=== PATIENT | male | born 1955 | race Caucasian/White ===

== ENCOUNTER 2019-02-19 20:28 | Emergency (ER) | payer BC ==
[~2019-02-19] VITALS: Ht 175.3 cm; Wt 75.5 kg
[~2019-02-19 20:28] MED LIST: BAYER CHEWABLE81 MG PO; CIPRO500 MG PO; FLAGYL500 MG PO; FLOMAX0.4 MG PO; LIPITOR20 MG PO; PRINIVIL10 MG PO; ZOFRAN4 MG PO
[2019-02-19] MEDS ORDERED: TOPROL XL25 MG PO (20:45)
[2019-02-19] MEDS ORDERED: ULTRAM50 MG PO (21:57)
== END 2019-02-19 22:55 | disposition home or self-care (01) ==
LOC: D.ER 20:28
DX: S61.213A Laceration without foreign body of left middle finger without damage to nail, initial encounter (principal); W26.0XXA Contact with knife, initial encounter; Y93.89 Activity, other specified; Y92.019 Unspecified place in single-family (private) house as the place of occurrence of the external cause

== ENCOUNTER → 2019-02-25 08:05 | Outpatient (CLI) | payer BC ==
[2019-02-19 20:43] VITALS: BMI 24.5
[~2019-02-25 08:05] MED LIST changes: +TOPROL XL25 MG PO; +ULTRAM50 MG PO
--- NOTE | 2019-03-01 09:40 | ST ---
PATIENT:ROSIE RAO MEDICAL RECORD: [id number] SEX: M LOCATION:[facility] ORDER #: ADMISSION DATE: 02/25/19 AGE OF PATIENT: 63 REFERRING PHYSICIAN: INTERPRETING PHYSICIAN: TUSHAR AREVALO MD DATE OF SERVICE: 02/25/2019 PROCEDURE: Nuclear stress test. INDICATION: Angina and coronary artery disease, shortness of breath, hypertension and hyperlipidemia. He was exercised on standard Tobi protocol for 8 minutes achieving greater than 85% max target heart rate response with 33 mCi of sestamibi injected at peak stress, 11 mCi were used previously for rest images. FINDINGS: Gated SPECT reveals preserved ejection fraction at 62% with good wall motion and thickening and brightening throughout all segments. SPECT imaging Cardiolite was used as myocardial fusion agent. There is homogeneous uptake throughout all segments at rest and stress with no evidence of inducible ischemia or previous infarction. OVERALL IMPRESSION: 1. This is a normal nuclear stress test with no evidence of inducible ischemia or previous infarction. 2. Gated SPECT reveals a preserved ejection fraction at 62%. In this patient with ongoing symptomatology, the current scan does not suggest the presence of hemodynamically significant coronary artery disease. Evaluate noncardiac etiology of chest pain. TRANSINT:[id number] Voice Confirmation ID: [id number] DOCUMENT ID: [id number] TUSHAR AREVALO MD at 0940 CC: SUSANA CHURCHILL [id number] DICTATION DATE: 02/26/19 1018 BUSINESS OFFICE ASSOCIATE: 02/27/19 0008 DEP CLI 02/25/[address] [id number]
== END | disposition home or self-care (01) ==
LOC: D.HCCARDIO 08:05
PROVIDERS: ATTEND Internal Medicine Interventional Cardiology
DX: I25.10 Atherosclerotic heart disease of native coronary artery without angina pectoris (principal)